=== PATIENT | female | born 1960 | race Caucasian/White ===

== ENCOUNTER → 2017-02-13 | Outpatient (CLI) | payer BC ==
[2016-10-08 13:25] VITALS: BP 146/72
[~2017-02-13] MED LIST: ASPI-630 PO; CELE200C PO; CYCL-331 PO; FERR15DR17 PO; HYDR-971 PO; HYDR12.53 PO; LISI40TA PO; MULT-246 PO; NALT1TAB PO; POTA10CA PO
--- NOTE | 2017-02-13 10:58 | RAD ---
Examination: Limited ultrasound right breast History: History of 6 month follow-up. Comparison: 09/03/2016 Findings: At 12:00 position of the right breast 2 cm from the nipple , there is a 1.6 cm hypoechoic region with internal echogenicity which is wider than tall. No evidence of vascular flow identified. Compared to prior exam , this is unchanged however the lesion was measured differently on today's examination compared to prior exam. There is a 6.5 mm cystic structure identified at the 10 o'clock position, 5 cm in the nipple with some internal echoes within grossly similar to prior exam. Few dilated ducts identified between the 10:00 and 12:00 position. Impression: Unchanged exam BI-RADS Category 3. Recommend right breast ultrasound in 6 months when the patient is due for a screening mammogram.
== END | disposition home or self-care (01) ==
LOC: US 09:57
PROVIDERS: ATTEND Physician Assistant
DX: N64.89 Other specified disorders of breast (principal)
CPT/HCPCS: 76641

== ENCOUNTER → 2017-09-29 | Outpatient (CLI) | payer BC ==
[2016-10-08 13:25] VITALS: BP 146/72
--- NOTE | 2017-09-30 09:21 | RAD ---
Abdominal radiograph 10/17/2017 Indication: Reflux, left lower quadrant abdominal pain. Comparison: None available. Technique: 2 supine views of the abdomen are provided. Findings: Supine technique limits evaluation for free intraperitoneal air. There is no organomegaly. There are no dilated loops of small or large bowel. No differential air-fluid levels are identified. No evidence for pneumatosis or portal venous gas. Mild degenerative changes of the lumbar spine are noted. No suspicious calcifications are identified. Impression: Nonobstructive bowel gas pattern.
== END | disposition home or self-care (01) ==
LOC: RAD 17:49
PROVIDERS: ATTEND General Practice
DX: K21.0 Gastro-esophageal reflux disease with esophagitis (principal); I10 Essential (primary) hypertension
CPT/HCPCS: 74018

== ENCOUNTER → 2017-10-05 | Outpatient (CLI) | payer BC ==
[2016-10-08 13:25] VITALS: BP 146/72
--- NOTE | 2017-10-05 11:56 | RAD ---
Limited ultrasound of the right breast 10/05/2017 Clinical history: Six-month follow-up of cystic structures in the right breast. Technique: A real-time ultrasound examination of the right breast at the 10:00 and 12:00 position was performed. Multiple images were obtained. Findings: Comparison studies are dated 02/13/2017. Within the right breast at the 12:00 position an oval-shaped anechoic structure is seen which measures 1.5 cm in greatest diameter. This has internal echoes within it. It is unchanged from the previous examination. Within the right breast at the 10:00 position a well-defined anechoic structure is seen which measures 6 mm in greatest diameter. This has internal echoes within it. It is unchanged from the previous examination. No new abnormality is seen. Impression: Stable sonographic appearance of the benign-appearing complex cysts within the right breast as outlined above. No new abnormality is seen. BI-RADS Category 2 benign findings.
--- NOTE | 2017-10-05 14:51 | RAD ---
DATE: 10/05/2017 EXAM: MAMMO GAURAV SCREENING BILATERAL Bilateral digital screening mammography to include digital breast tomosynthesis (3D mammography) HISTORY: Screening study. COMPARISON: 08/27/2016 This study was interpreted with the benefit of Computerized Aided Detection (CAD). FINDINGS: Digital MLO and CC mammograms of both breasts were obtained. Additionally digital breast tomosynthesis (3D mammography) images of both breasts in the MLO and CC projections were performed. Comparison study is dated 08/27/2016. The breast parenchyma is heterogeneously dense which can obscure a lesion on mammography (breast density code C). No spiculated mass is seen. No malignant appearing calcification or area of architectural distortion is noted. Benign-appearing calcifications are seen within both breasts. Small well-defined benign-appearing nodules are seen within both breasts, unchanged. Digital breast tomosynthesis images demonstrate no spiculated mass or malignant appearing calcification. Since the previous examination there has been no significant interval change. IMPRESSION: BI-RADS Category 2, benign findings. There is no mammographic evidence of malignancy. Routine yearly screening mammography is recommended for follow-up. BI-RADS CATEGORY: 2 BENIGN FINDING(S) RECOMMENDED FOLLOW-UP: 12M 12 MONTH FOLLOW-UP PQRS compliance statement: Patient information was entered into a reminder system with a target due date 10/05/2018 for the next mammogram. Mammography is a sensitive method for finding small breast cancers, but it does not detect them all and is not a substitute for careful clinical examination. A negative mammogram does not negate a clinically suspicious finding and should not result in delay in biopsying a clinically suspicious abnormality. "Our facility is accredited by the [employer] Mammography [employer]."
== END | disposition home or self-care (01) ==
LOC: MAMMO 10:05
PROVIDERS: ATTEND Physician Assistant
DX: Z12.31 Encounter for screening mammogram for malignant neoplasm of breast (principal); N60.01 Solitary cyst of right breast
CPT/HCPCS: 76641; 77063; 77067

== ENCOUNTER → 2018-10-13 | Outpatient (CLI) | payer BC ==
[2016-10-08 13:25] VITALS: BP 146/72
[~2018-10-13] MED LIST changes: +HYDR-3165 PO; -HYDR-971 PO; -HYDR12.53 PO; +HYDR12.572 PO
--- NOTE | 2018-10-13 13:29 | RAD ---
DATE: 10/13/2018 EXAM: MAMMO GAURAV SCREENING BILATERAL HISTORY: Routine screening COMPARISON: 10/05/2017 This study was interpreted with the benefit of Computerized Aided Detection (CAD). Breast Density: HETERO The breast parenchyma is heterogenously dense, which could reduce sensitivity of mammography. Breast parenchyma level C. FINDINGS: 2-D and 3-D tomosynthesis imaging was performed in CC and MLO projections. There are bilateral smooth breast nodules which are unchanged. No new or enlarging breast densities are seen. Benign type calcifications are present bilaterally. No suspicious microcalcifications have developed. IMPRESSION: Stable mammograms without evidence of malignancy. BI-RADS CATEGORY: 2 BENIGN FINDING(S) RECOMMENDED FOLLOW-UP: 12M 12 MONTH FOLLOW-UP PQRS compliance statement: Patient information was entered into a reminder system with a target due date for the next mammogram. Mammography is a sensitive method for finding small breast cancers, but it does not detect them all and is not a substitute for careful clinical examination. A negative mammogram does not negate a clinically suspicious finding and should not result in delay in biopsying a clinically suspicious abnormality. "Our facility is accredited by the [employer] Mammography [employer]."
== END | disposition home or self-care (01) ==
LOC: MAMMO 10:20
PROVIDERS: ATTEND Physician Assistant
DX: Z12.31 Encounter for screening mammogram for malignant neoplasm of breast (principal)
CPT/HCPCS: 77063; 77067

== ENCOUNTER → 2018-10-29 | Outpatient (CLI) | payer BC ==
[2016-10-08 13:25] VITALS: BP 146/72
--- NOTE | 2018-10-29 10:29 | RAD ---
Three-view left shoulder dated 10/29/2018. No comparison available. Clinical data indication: Shoulder pain for 6 months. No known injury. FINDINGS: 3 views left shoulder show normal bony alignment. No displaced fracture. No acute osseous or articular abnormality. Small calcification in the axillary soft tissues may represent a calcified lymph node. IMPRESSION: No acute findings. Electronically signed by: Sahil Regalado MD (10/29/2018 10:24 AM) [id number]
== END | disposition home or self-care (01) ==
LOC: RAD 10:01
PROVIDERS: ATTEND Registered Nurse
DX: M25.512 Pain in left shoulder (principal)
CPT/HCPCS: 73030

== ENCOUNTER → 2019-10-31 | Outpatient (CLI) | payer BC ==
[2016-10-08 13:25] VITALS: BP 146/72
--- NOTE | 2019-11-02 12:36 | RAD ---
History: Routine screening. Technique: Bilateral digital mammographic routine views were obtained with 2-D and 3-D technique, with CAD - computer aided detection. Comparison: Left diagnostic mammogram of 12/13/2013, bilateral mammograms of 12/22/2014, 08/27/2016 and 10/13/2018.. Findings: Breast Tissue Density B :The breast tissue is composed of mixed fatty and fibroglandular tissue. There are no suspicious masses, microcalcifications or areas of architectural distortion. Impression: Negative mammogram. BI-RADS Category 1: Negative. Normal interval followup. A mammogram does not have 100% sensitivity and therefore a negative imaging study should not delay further work up of a suspicious abnormality. The patient will receive a letter with the results in the mail. Patient information is entered into the reminder system with a target due date for the next screening mammogram. The patient will receive a reminder. "Our facility is accredited by the [employer] Mammography [employer]." BI-RADS 2 -- benign findings
== END | disposition home or self-care (01) ==
LOC: MAMMO 08:55
PROVIDERS: ATTEND Physician Assistant
DX: Z12.31 Encounter for screening mammogram for malignant neoplasm of breast (principal); N64.89 Other specified disorders of breast
CPT/HCPCS: 77063; 77067

== ENCOUNTER → 2021-09-10 | Outpatient (CLI) | payer BC ==
[2016-10-08 13:25] VITALS: BP 146/72
[~2021-09-10] MED LIST changes: -CYCL-331 PO; +CYCL10TA19 PO; -LISI40TA PO; +LISI40TA6 PO
--- NOTE | 2021-09-10 17:28 | RAD ---
BILATERAL DIGITAL SCREENING 2-D AND 3-D MAMMOGRAM INDICATION: Routine screening. COMPARISON: October 31, 2019, 2015, October 05, 2017 Interpretation was made using CAD. FINDINGS: Breast Density: There are scattered areas of fibroglandular density. RIGHT BREAST: There are multiple stable asymmetries and tiny oval circumscribed masses. Given the sta bility these are considered benign. No suspicious masses, calcifications or areas of architectural di stortion are seen. LEFT BREAST: There is a stable benign appearing oval circumscribed mass in the lower outer breast. No suspicious masses, calcifications or areas of architectural distortion are seen. IMPRESSION: 1. No imaging evidence of malignancy. ASSESSMENT: BI-RADS 2. Benign findings RECOMMENDATION: Routine annual screening mammogram. The facility will notify the patient of the results via mail. Patient information will be entered int o the mammography reminder system with a target recall date for the next mammogram. A reminder letter will be generated by the facility. Electronically signed by: Holly August MD (09/10/2021 5:25 PM) [id number]
== END ==
LOC: MAMMO 10:41
PROVIDERS: ATTEND Physician Assistant
DX: Z12.31 Encounter for screening mammogram for malignant neoplasm of breast (principal)
CPT/HCPCS: 77063; 77067